=== PATIENT | male | born 1985 | race Caucasian/White ===

== ENCOUNTER 2023-10-24 20:18 | Emergency (ER) | payer SELFPAY ==
[~2023-10-24] VITALS: Ht 180.3 cm; Wt 99.8 kg
[2023-10-24 20:22] VITALS: BP 132/86; PULSE 85; RESP 20; TEMP 98.5; O2SAT 96
[2023-10-24] MEDS: MORPHINE SULFATE 4 MG/ML SYR IM ONE (21:14)
[2023-10-24 21:26] LABS: BASOPHILS # (AUTO) 0.1 K/uL (0.00-0.22); BASOPHILS % (AUTO) 0.6 % (0.0-2.0); EOSINOPHILS # (AUTO) 0.1 K/uL (0-0.4); EOSINOPHILS % (AUTO) 1.4 % (0.0-4.0); HEMOGLOBIN 16.1 g/dL (12.0-18.0); LYMPHOCYTES # (AUTO) 1.1 K/uL (2.0-11.5); LYMPHOCYTES % (AUTO) 12.2 % (20.5-51.1); MEAN CORPUSCULAR HEMOGLOBIN 32 pg (27-31); MEAN CORPUSCULAR HGB CONC 36 g/dL (33-37); MEAN CORPUSCULAR VOLUME 88.8 fL (80-94); MONOCYTES # (AUTO) 0.7 K/uL (0.8-1.0); MONOCYTES % (AUTO) 7.9 % (1.7-9.3); NEUTROPHILS # (AUTO) 7.2 K/uL (1.8-7.7); NEUTROPHILS % (AUTO) 77.9 % (42.2-75.2); PLATELET COUNT (AUTO) 254 K/uL (140-450); RED BLOOD CELL COUNT(AUTO) 5.07 MIL/uL (4.20-6.10); RED CELL DISTRIBUTION WIDTH 12.4 % (11.6-13.7); WHITE BLOOD COUNT (AUTO) 9.2 K/uL (4.8-10.8)
[2023-10-24 21:39] LABS: ALBUMIN 3.5 g/dL (3.4-5.0); CALCIUM 8.6 mg/dL (8.5-10.1); CREATININE 0.9 mg/dL (0.6-1.3); TOTAL BILIRUBIN 0.4 mg/dL (0.0-1.0); TOTAL PROTEIN, SERUM 7.9 g/dL (6.4-8.2)
[2023-10-24] MEDS: DICYCLOMINE HCL LIQUID 20 MG, ALUMINUM HYD/MAG/SIMETHICONE 30 ML, LIDOCAINE VISCOUS 2% ... PO ONE (22:04)
[2023-10-24] MEDS: DICYCLOMINE HCL LIQUID 10 MG/5 ML UDC ONE (22:07)
[2023-10-24] MEDS: ALUMINUM HYD/MAG/SIMETHICONE 30 ML UDC ONE (22:10)
[2023-10-24] MEDS ORDERED: AMOX-1230 PO (22:41)
[2023-10-24] MEDS ORDERED: MELA10TA4 PO (22:41)
[2023-10-24] MEDS ORDERED: ACET-10509 PO (22:42)
[2023-10-24 22:53] VITALS: BP 140/86; PULSE 93; RESP 20; TEMP 98.5; O2SAT 96
== END 2023-10-24 22:53 | disposition home or self-care (01) ==
LOC: MED 20:18
DX: K04.7 Periapical abscess without sinus (principal); K12.1 Other forms of stomatitis; Z79.899 Other long term (current) drug therapy
CPT/HCPCS: 36415; 80053; 85025; 96372; 99283; J2270